=== PATIENT | female | born 1980 | race Caucasian/White ===

== ENCOUNTER 2025-06-20 14:04 | Outpatient (AMB) | payer BC, SELFPAY ==
[2025-06-20 14:10] VITALS: BMI 29.5
--- NOTE | 2025-06-20 14:10 | A.PHYSOV ---
Vital Signs 06/20/25 14:10 Height 6 ft 2 in Weight 230 lb BMI 29.5 Intake Visit Reasons: 2M FUV Intake Note: Patient is here for a 2 month follow up office visit. Foundation Assistant Required: No Allergies Sulfa (Sulfonamide Antibiotics) Allergy (Unknown, Verified 06/20/25 14:13) Unknown HPI Comments Details: History of Present Illness The patient reports experiencing chronic pain, which has been persistent and is managed with gabapentin, tizanidine, and Excedrin. The patient has increased the gabapentin dosage to 300 mg as suggested, which has provided some relief, although aches persist. Patient would like to consider gabapentin 3 times a day for his next refill. The patient uses a combination of medications to manage pain, including tizanidine and Excedrin, and reports that this regimen helps to make the pain more manageable. The patient describes right ankle pain without trauma, resulting in significant pain and the need to use a cane for mobility. Most of his pain is over the Achilles tendon on the right. The patient reports that his symptoms are improving. The patient reports that the ankle was swollen and painful, requiring rest and ice application, which has led to some improvement. The patient has a history of using a TENS machine and performing muscle exercises to manage pain, although adherence to these exercises has been inconsistent. Patient did undergo L5-S1 COOPER on 03/24/2025 without relief Pain Description - Onset: Chronic pain has been ongoing, with recent exacerbation due to ankle injury. - Quality: Described as aches and pains, with significant discomfort in the ankle. - Location: Generalized body aches with specific pain in the ankle. - Exacerbating factors: Physical activity and weight-bearing increase pain. - Relieving factors: Use of gabapentin, tizanidine, Excedrin, rest, and ice application provide relief. Procedure: Bilateral intra-articular injection of the hips 11/11/2024 20% reduction of his pain. L5-S1 COOPER 03/24/2025 minimal reduction of his pain. [facility] Social History Alcohol intake: current Alcohol intake frequency: holidays/special occasions only Patient Tobacco Use Status: Never used Tobacco Review of Systems Narrative Review of Systems - Musculoskeletal: Reports chronic pain and ankle discomfort. Denies other joint pain or swelling. - Neurological: Reports persistent aches. Denies numbness or tingling. Physical Exam Exam Exam: Physical Exam Lumbar Spine: Examination of his lumbar spine, there is no visible swelling or deformity. He is tender to lower lumbar facets. He has full range of motion of his lumbar spine. He does have an increase in pain with facet loading. Special Tests: Lhermittes sign was negative Heel Toe walk is normal Left straight leg raise: Negative Right straight leg raise: Negative Special tests Kayden test is negative Ganslen's test is negative SI Joint compression test negative Pat test negative Piriformis stretch is negative Lower Extremities: Full range of motion bilateral lower extremities. No calf pain or edema. Neuro: Sensation: Intact to lower extremities bilaterally Strength L2 (Psoas): 5/5 on the left and 5/5 on the right. L3 (Quads): 5/5 on the left and 5/5 on the right. L4 (Ant tibialis): 5/5 on the left and 5/5 on the right. L5 (EHL) 5/5 on the left and 5/5 on the right. S1 (Gastroc): 5/5 on the left and 5/5 on the right. DTR L4: (Patellar) Left 2 Right 2 S1: (Achilles) Left 1 Right 1 Babinski Downgoing No pathologic clonus. No involuntary movement. Vital Signs: BMI result Body Mass Index 29.5 Assessment & Plan Assessment & Plan (1) Lumbar radiculopathy: Code(s): M54.16 - Radiculopathy, lumbar region Category: Medical (2) Lumbar spondylosis: Code(s): M47.816 - Spondylosis without myelopathy or radiculopathy, lumbar region Category: Medical (3) Right ankle pain: Code(s): M25.571 - Pain in right ankle and joints of right foot Category: Medical Qualifiers: Chronicity: acute Qualified Code(s): M25.571 - Pain in right ankle and joints of right foot Plan Pain Management - Affect: Pain impacts the patient's daily activities and mood, requiring a combination of medications for management. - Analgesia: Gabapentin 300 mg, tizanidine, and Excedrin are used to manage pain, with some relief noted. - Adverse Effects: No specific adverse effects from medications were discussed. - Activities of Daily Living: Pain affects mobility, necessitating the use of a cane and impacting work activities. - Aberrant Drug Related Behaviors: No aberrant behaviors were reported. Plan Patient was informed and verbally consented to the use of an ambient scribe for clinic note documentation during this visit. 1. Ankle Sprain The patient presented with an ankle sprain, characterized by swelling and pain, which has improved with rest and ice application. The plan includes continued use of ice, rest, and anti-inflammatory medications as needed. Physical therapy may be considered if symptoms persist beyond a couple of months. There is no trauma, I do not believe x-ray will be helpful. 2. Chronic Pain The patient is managing chronic pain with gabapentin, tizanidine, and Excedrin, which provides some relief. A trial of cyclobenzaprine has been initiated to assess its effectiveness in managing muscle spasms. Patient will discontinue tizanidine. The patient is encouraged to continue using a TENS machine and performing muscle exercises to aid in pain management. Patient is considering disability. I recommended contact the disability office. We are happy to provide supporting documentation. Recommend follow-up in 2 months as needed. Medications: New cyclobenzaprine Patient will be discontinuing tizanidine. 10 mg PO TID PRN 90 tabs 0RF muscle spasm 30 days M25.571 - Pain in right ankle and joints of right foot Coding Level of Care Code Tele Est Pt Level 4 (33816) Diagnoses Lumbar radiculopathy M54.16 Lumbar spondylosis M47.816 Acute right ankle pain M25.571 Chronicity: acute
--- OUTSIDE RECORDS SUMMARY | 2025-06-20 17:59 | XMS_ITS | Encounter Summary ---
Author Organization [facility] Address [address] [place] [address] Care Team Providers Care [employer] Name Role Phone Irene Zuleta MD Primary Care Provider [phone] Encounter Details Date Type Department Care Team ([facility] st Contact Info) Description 05/05/2025 Results Follow-Up Endocrinology - [place] [address] [place] [address] Alvin Young MD [address] [place] [address] Social History Tobacco Use Types Packs/Day Years Used Date Smoking Tobacco: Former Cigarettes Smokeless Tobacco: Never Alcohol Use Standard Drinks/Week Comments Yes 0 (1 standard drink = 0.6 oz pur e alcohol) ocassionally Housing Instability Answer Date Recorde d Are you worried that in the next 2 months you may not have stable housing? No 12/28/2024 Food Access & Nutrition Answer Date Rec orded Do you have access to a vari ety of food including fruits and vegetables? Yes 12/28/2024 Access to Healthcare Answer Date Record ed Within the last 3 months, ho w many times did you visit the emergency department for your medical care? 1 12/28/2024 Health Literacy Answer Date Recorded How often do you need to hav e someone help you when you read instructions, pamphlets, or other written material from your doctor or pharmacy? Always 12/28/2024 Caregiver: How often do you need to have someone help you when you read instructions, pamphlets, or other written material from your doctor or pharmacy? Not on file 12/28/2024 Financial Risk Answer Date Recorded How hard is it for you to pa y for the very basics like food, housing, medical care, and air conditioning / heating? Somewhat hard 12/28/2024 Transportation Answer Date Recorded Has the lack of transportati on kept you from meetings, work, or from getting things needed for daily living? No Has the lack of transportati on kept you from medical appointments or from getting medications? No 12/28/2024 Social Isolation Answer Date Recorded How often do you feel lonely or isolated from th ose around you? Never 12/28/2024 Food Risk Answer Date Recorded Within the past 12 months we worried whether our food would run out before we got money to buy more. Never true 12/28/2024 Within the past 12 months th e food we bought just didn't last and we didn't have money to get more. Never true 12/28/2024 Dependent Care Answer Date Recorded Do you need help finding or paying for care for your loved ones. For example, child welfare consultant or elderly care for an older adult? No 12/28/2024 Education Answer Date Recorded Do you think completing more education or training, like finishing a GED, going to college, or learning a trade, would be helpful for you? No 12/28/2024 Employment and Income Answer Date Recor ded During the last four weeks, have you been actively looking for work? Yes 12/28/2024 Living Situation Answer Date Recorded What is your living situation? Unrecognized valu e 12/28/2024 Interpersonal Safety Answer Date Record ed Physical Abuse Unrecognized value 02/28/2025 Verbal Abuse Unrecognized value 02/28/2025 Sex and Gender Information Value Date Recorded Sex Assigned at Not on file Legal Sex Male 11:55 PM EST Gender Identity Not on file Sexual Orientation Not on file documented as of this encounter Plan of Treatment Not on file documented as of this encounter Visit Diagnoses Not on filedocumented in this encounter Additional Health Concerns Assessment Noted Time PHQ-9 Depression Total Score: 0 12/29/19 25 2:54 PM EDT documented as of this encounter Care Teams [employer] Relationship Specialty Start Date End Date Irene Zuleta MD [address] [place] [address] PCP - General Internal Medicine 12/30/24 documented as of this encounter
--- OUTSIDE RECORDS SUMMARY | 2025-06-20 17:59 | XMS_ITS | Clinical Summary ---
Author Organization [facility] Address [address] [facility] [address] [place] [phone] Phone Care Team Providers Care Customer Experience Consultant Name Role Phone Irene Zuleta MD Primary Care Provider [phone] Allergies Active Allergy Reactions Criticality Noted Date Comments Bee Pollen Hives Medium 05/21/2023 hornets Sulfa (Sulfonamide Antibiotics) Hives Medium 12/26 Medications aspirin-acetami nophen-caffeine (EXCEDRIN MIGRAINE) 250-250-65 mg per tablet Take by mouth as needed. Active multivitamins capsule as directed Active triamcinolone (NASACORT AQ) 55 mcg/actuation nasal inhaler by Nasal route. Active loratadine (CLARITIN) 10 mg tablet Take 10 mg by mouth daily. Active glucosamine/cho ndr sharif A sod (OSTEO BI-FLEX ORAL) Take 1 tablet by mouth daily. Active b complex vitamins capsule Take 1 capsule by mouth daily. Active FLUoxetine (PROZAC) 40 MG capsule Take 40 mg by mouth every morning. 05/06/2025 Active busPIRone (BUSPAR) 5 MG tablet TAKE 1 TABLET BY MOUTH 2 TIMES A DAY (MORNING AND EVENING) 05/10/2025 Active gabapentin (NEURONTIN) 100 MG capsule TAKE 2 CAPSULES BY MOUTH 3 TIMES A DAY FOR 90 DAYS 05/01/2025 Active omeprazole (PRILOSEC) 20 MG capsule TAKE 1 CAPSULE BY MOUTH 1 TIME EACH DAY. DO NOT CRUSH OR CHEW. 04/04/2025 Active sildenafiL (VIAGRA) 50 mg tablet TAKE 1 TABLET BY MOUTH EVERY OTHER DAY NEEDED 03/21/2025 Active tiZANidine (ZANAFLEX) 4 MG tablet TAKE 1 BY MOUTH 3 TIMES A DAY 04/25/2025 Active psyllium (METAMUCIL) 0.52 gram capsule Take 520 mg by mouth. Active cetirizine (ZYRTEC) 10 MG tablet Take 10 mg by mouth daily. 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 He has significant back pain and arthritides. The patient has been having right groin discomfort for the past 6 months and he has had a CT scan which I reviewed that shows no evidence of left or right inguinal hernia but a small fat-containing umbilical hernia which is not palpable on exam and the patient has no symptoms from this. Patient is using a cane secondary to his lumbar disc disease. I believe that his pain in the right groin is associated with the arthritis that he reports he is suffering from in his right hip. There is no indication for any surgical intervention. Please follow-up as needed Encounters Date Type Department Care Team Description 05/16/2025 1:00 PM EDT Office Visit [facility] General Surgical [facility] [address] [place] [address] Shazia Castaneda MD Umbilical hernia without obstruction and without gangrene (Primary Dx) from Last 3 Months Family History Medical History Relation Comments Cancer Brother 1 Diabetes type II Father Relation Status Comments Brother 1 Brother 2 Alive Father Alive Mother Alive Sister Alive Social History Tobacco Use Types Packs/Day Years Used Date Smoking Tobacco: Former Cigarettes Q uit: 1997 Passive Smoke Exposure: Never Smokeless Tobacco: Never Alcohol Use Standard Drinks/Week Comments Yes 5 (1 standard drink = 0.6 oz pur e alcohol) social Education Answer Date Recorded Are you interested in more education? Not on sae e 11/21/2022 Are you concerned about learning? Not on file 11/21/2022 No 11/21/2022 No 11/21/2022 Digital Access Answer Date Recorded No 12/19/2022 No 12/19/2022 Reliable internet access at home? Not on file 12/19/2022 Device with a working camera? Not on file Intimate Partner Violence Answer Date R ecorded Are you denied basic needs s uch as food, clothing, or medical care? No 11/20/2024 In the past 12 months have y ou been in a relationship with a person who hurts, threatens, or tries to control you? No 11/20/2024 Are you denied basic needs s uch as food, clothing, or medical care? No 11/20/2024 In the past 12 months have y ou been in a relationship with a person who hurts, threatens, or tries to control you? 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 Not on file Not on f ile Last Filed Vital Signs Vital Sign Reading Time Taken Comments Blood Pressure 110/70 05/16/2025 1:07 PM EDT Pulse 68 05/16/2025 1:07 PM EDT Temperature 37.2 C (98.9 F) 05/16/2025 1:07 PM EDT Respiratory Rate 18 11/20/2024 5:06 PM EDT Oxygen Saturation 98% 05/16/2025 1:07 PM EDT Inhaled Oxygen Concentration - - Weight 106.6 kg (235 lb) 05/16/2025 1:07 PM EDT Height 180.3 cm (5' 10.98 ) 05/16/2025 1:07 PM E DT Body Mass Index 32.79 05/16/2025 1:07 PM EDT Plan of Treatment Health Maintenance Due Date Last Done Comments DEPRESSION SCREENING 1992 HEPATITIS C SCREENING 1998 HIV ONE-TIME SCREENING (18-6 5 YEARS) 1998 INFLUENZA VACCINE (#1) 2025 COVID-19 VACCINE (2024-2 6 season) 2025 SMOKING Hx and SMOKELESS TOBACCO SCREENING 05/16/2026 05/16/2025 SCREENING FOR DIABETES 05/21/2026 05/21/2023 LIPID PANEL 12/30/2029 12/30/2024, 01/13/2023 Adult Td,Tdap Booster 01/09/2032 01/08/2022 HEPATITIS A VACCINES Aged Out No long er eligible based on patient's age to complete this topic HIB VACCINES Aged Out No longer eligi ble based on patient's age to complete this topic MENINGOCOCCAL VACCINES (ACWY) Aged Out No longer eligible based on patient's age to complete this topic MENINGOCOCCAL VACCINES (B) Aged Out N o longer eligible based on patient's age to complete this topic PNEUMOCOCCAL VACCINES (0-49 years) Aged Out No longer eligible b ased on patient's age to complete this topic Medical Devices Not on file Insurance Care Teams Customer Experience Consultant Relationship Specialty Start Date End Date Irene Zuleta MD [address] [place] [phone] PCP - General Internal Medicine 04/18/25 Additional Source Comments The information contained in this document represents components of the legal health record. It is not the complete legal health record.[facility]
--- OUTSIDE RECORDS SUMMARY | 2025-06-20 17:59 | XMS_ITS | Clinical Summary ---
Author Organization [facility] [address] [place] [address] Address [address] [facility] [place] [address] Phone Care Team Providers Care Link Assembler Name Role Phone Irene Zuleta MD Primary Care Provider [phone] Allergies Active Allergy Reactions Criticality Noted Date Comments Sulfa (Sulfonamide Antibiotics) Hives Medium 12/26 Medications loratadine (CLARITIN) 10 mg tablet Take 10 mg by mouth daily. Active multivitamin (MULTIPLE VITAMINS ORAL) Take by mouth 1 (one) time each day. Active ASPIRIN-ACETAMI NOPHEN ORAL Take by mouth. Active tiZANidine (ZANAFLEX) 4 mg tablet Take 1 tablet (4 mg total) by mouth 3 (three) times a day. 5 Active omeprazole (PriLOSEC) [address] capsule Take 1 capsule (20 mg total) by mouth 1 (one) time each day. Do not crush or chew. 90 each 1 5 Active sildenafiL (VIAGRA) 50 mg tablet Take 1 tablet (50 mg total) by mouth if needed. 5 Active B complex tablet Take 1 tablet by mouth 1 (one) time each day. Active psyllium (METAMUCIL) 0.52 gram capsule Take 1 capsule (520 mg total) by mouth 1 (one) time each day. Active gabapentin (NEURONTIN) 100 mg capsule Take 2 capsules (200 mg total) by mouth 3 (three) times a day. Active busPIRone (BUSPAR) 5 mg tablet TAKE 1 TABLET BY MOUTH 2 TIMES A DAY (MORNING AND EVENING) Active FLUoxetine (PROzac) 40 mg capsule Take 1 capsule (40 mg total) by mouth 1 (one) time each day in the morning. 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 12/30/2024 Temporomandibular joint disorder 12/30/2024 COVID-19 virus infection 08/22/2020 Overview (07/11/2024): 07/15 Right hip pain 01/15/2015 Knee pain 01/15/2015 Migraine 01/15/2015 Lumbar radiculopathy 01/15/2015 Encounters Date Type Department Care Team Description 05/30/2025 11:00 AM EST Office Visit Adult Medicine [address] [phone] Karan Grewal PA Left thigh pain (Primary Dx) 05/18/2025 Results Follow-Up Adult Medicine [place] - [address] [phone] Irene Zuleta MD 05/05/2025 Results Follow-Up Endocrinology - [address] [phone] Alvin Young MD 04/19/2025 2:00 PM EDT - 04/19/2025 11:59 PM EDT Hospital Encounter CT Scan - [address] [phone] Right inguinal pain; Umbilical hernia without obstruction and without gangrene Discharge Disposition: Home or Self Care 04/13/2025 1:00 PM EDT Office Visit Adult Medicine [address] [phone] Irene Zuleta MD Right inguinal pain (Primary Dx); Non-recurrent unilateral inguinal hernia without obstruction or gangrene; Umbilical hernia without obstruction and without gangrene from Last 3 Months Immunizations Immunization Administration Dates Next Due H1N1 Inj 08/04/2009 Hepatitis A Adult (Havrix; V aqta) 19yo and older 10/30/2003 IPV Inactivated polio (Ipol) 6wks and older 04/21/2003 Influenza Quadrivalent, 0.5m l, preservative free (Fluarix; FluLaval; Fluzone) ages 6mo and older (Afluria) 3yo and older 05/11/2022,06/02/2020,05/30/2018 Influenza Quadrivalent, with preservative (Fluzone; Afluria) 6mo and older 06/28/2017 Influenza Split 05/28/2008, 7,07/03/2006,06/28 Influenza Whole 05/06/2003 Influenza trivalent, 0.5mL, preservative free (Fluarix; FluLaval; Fluzone) ages 6mo and older (Afluria) 3 years and older 05/10/2016,04/29/2015,04/30/2014,05/16,05/09/2012 Influenza, Unspecified 06/02/2021 Influenza, live, intranasal, trivalent (FluMist) 2yo to less than 50yo 06/01/2010,04/29/2009,08/16/2004 MMR, measles mumps and rubel la Live (Priorix; M-M-R II) 12mo and older 04/28/2003 Meningococcal Polysaccharide 04/21/2003 Moderna (age 6mo & older) Bi valent, COVID-19, 0.5 mL or 0.25 mL dosage 08/29/2020 Moderna SARS-CoV-2 COVID-19, mRNA, LNP-S, preservative free 06/30/2021,09/30/2020,09/01/2020 PPD Test 10/30/2003,04/21/2003 Td Tetanus diptheria (Tdvax) 7yo and older 10/30/2003,04/21/2003 Tdap Tetanus diptheria acell ular pertussis (Boostrix; Adacel) 7yo and older 02/13/2022,01/08/2022,05/09/2012 Typhoid VICPS (Typhim Vi) 2y o and older 12/14/2005,10/30/2003 Varicella live (Varivax) 12m o and older 04/28/2003 Surgical History Surgery Date Site/Laterality Comments VASECTOMY PROCEDURE: HISTORICAL VASECTOMY COLONOSCOPY 04/18/16 PROCEDURE: HISTORICAL COLONOSCOPY; COMMENT: tics; repeat in 5 yrs Medical History Medical History Date Comments Right hip pain 01/15/2015 DX:Right hip chey n Lumbar radiculopathy 01/15/2015 DX:Lumbar r adiculopathy Cluster headache 01/15/2015 DX:Cluster head ache Migraine 01/15/2015 DX:Migraine Family history of colon cancer D X:Family history of colon cancer COVID-19 virus infection 08/22/2020 DX:COVI D-19 virus infection; COMMENT: 07/15 Anxiety Depression Gastroesophageal reflux dise ase without esophagitis 12/30/2024 Family History Medical History Relation Name Comments Cancer Brother Favio segovia Small bowel. Half brother Diabetes Father Robert moody Type 2 Other: healthy Father Robert moody Alcohol abuse Maternal Grandfather Kemar Jeffery Alcoho lic Colon cancer Maternal Grandfather Kemar Jeffery 60s Lung cancer Maternal Grandfather Kemar Jeffery smoker, etoh abuse Colon cancer Maternal Grandmother 70's Colon polyps Mother Other: healthy Mother Stroke Uncle brain tumor Blindness Neg Hx Cataracts Neg Hx Glaucoma Neg Hx Macular degeneration Neg Hx Strabismus Neg Hx Relation Name Status Comments Brother Favio segovia Father Robert moody Maternal Grandfather Kemar Jeffery Maternal Grandmother Mother Uncle Social History Tobacco Use Types Packs/Day Years Used Date Smoking Tobacco: Former Cigarettes Smokeless Tobacco: Never Tobacco Cessation:Counseling Given: Not Answered Alcohol Use Standard Drinks/Week Comments Yes 0 [...] for your loved ones. For example, child care provider or elderly care for an older adult? [...] on file Sexual Orientation Not on file Obstetrics History Last Filed Vital Signs Vital Sign Reading Time Taken Comments Blood Pressure 128/80 05/30/2025 10:53 AM EST Pulse 78 05/30/2025 10:53 AM EST Temperature 36.5 C (97.7 F) 05/30/2025 10:53 AM EST Respiratory Rate 14 05/30/2025 10:53 AM EST Oxygen Saturation 98% 02/28/2025 10:42 AM EDT Inhaled Oxygen Concentration - - Weight 109 kg (240 lb) 05/30/2025 10:53 AM EST Height 188 cm (6' 2 ) 05/30/2025 10:53 AM EST Body Mass Index 30.81 05/30/2025 10:53 AM EST Plan of Treatment Health Maintenance Due Date Last Done Comments Hepatitis B Vaccines (1 of 3 - 19+ 3-dose series) 10/25/1999 IPV Vaccines (2 of 3 - Adult catch-up series) 05/19/2003 04/21/2003 HPV Vaccines (1 - 3-dose SCDM series) 10/25/2007 HIV Screening 06/29/2022 Hepatitis C Screening 06/29/2022 COVID-19 Vaccine ( season) 2025 06/30/2021, 09/30/2020, 09/01/2020, Additional history exists Influenza Vaccine (#1) 2025 , 06/02/2021, 06/02/2020, Additional history exists Social Influencers of Health Screening 12/28/2025 12/28/2024 Cholesterol Screening (Lipid Panel) 12/30/2029 12/30/2024, 01/13/2023 Colorectal Cancer Screening: Colonoscopy 02/28/2030 02/28/2025, 04/18/2016, 04/18/2016 DTaP,Tdap,and Td Vaccines (6 - Td or Tdap) 02/14/2032 02/13/2022, 01/08/2022, 05/09/2012, Additional history exists RSV Immunization Adult Patients (1 - 1-dose 75+ series) 10/25/2055 Meningococcal ACWY Vaccine Aged Out 04/21/2003 N o longer eligible based on patient's age to complete this topic MMR Vaccines Aged Out 04/28/2003 No longer eligi ble based on patient's age to complete this topic Varicella Vaccines Aged Out 04/28/2003 No longer eligible based on patient's age to complete this topic Hepatitis A Vaccines Aged Out 10/30/2003 No long er eligible based on patient's age to complete this topic Depression Screening Completed 12/28/2024 HIB Vaccines Aged Out No longer eligi ble based on patient's age to complete this topic Meningococcal B Vaccine Aged Out No l onger eligible based on patient's age to complete this topic Pneumococcal Vaccine: Pediatrics (0 to 5 Years) and At-Risk Patients (6 to 49 Years) Aged Out No longer eligible based on patient's age to complete this topic RSV Immunization Patients Under 20 months Aged Out No longer eligible based on patient's age to complete this topic Procedures Procedure Name Priority Date/Time Associated Diagnosis Comments CT ABDOMEN PELVIS W CONTRAST Routine 04/19/2025 2:17 PM EDT Right inguinal pain Umbilical hernia without obstruction and without gangrene CBC WITH AUTO DIFFERENTIAL Routine 04/13/2025 1:56 PM EDT Non-recurrent unilateral inguinal hernia without obstruction or gangrene BASIC METABOLIC PANEL Routine 04/13/2025 1:56 PM EDT Non-recurrent unilateral inguinal hernia without obstruction or gangrene CBC AND DIFFERENTIAL Routine 04/13/2025 1:56 PM EDT Non-recurrent unilateral inguinal hernia without obstruction or gangrene COLONOSCOPY Routine 02/28/2025 10:21 AM EDT Gastroesophageal reflux disease without esophagitis BRBPR (bright red blood per rectum) Frequent bowel movements LIPID PANEL WITH REFLEX TO DIRECT LDL Routine 12/30/2024 4:26 PM EDT Screening for cardiovascular, respiratory, and genitourinary diseases from Last 3 Months or Most Recently Relevant to Health Maintenance Results * CT Abdomen Pelvis w Contrast (04/19/2025 2:17 PM EDT) Anatomical Region Laterality Modality Body Computed Tomogra phy 04/19/2025 4:48 PM EDT Narrative 04/19/2025 4:[address] of the abdomen and pelvis with intravenous contrast. History abdominal pain. Rule out right inguinal hernia. Examination was performed on multidetector scanner with administration of 100 cc of Isovue 370. Comparison with prior CT scan of the abdomen and pelvis from 01/06/2025. Liver, spleen, pancreas, adrenal glands, kidneys and gallbladder are unremarkable. There is no biliary ducts dilatation. There is no evidence of bowel obstruction. Appendix is normal in appearance. There are a few diverticuli in the sigmoid colon without evidence of diverticulitis. Pelvic organs are unremarkable. There is no evidence of ascites, abscesses, or focal fluid collections or lymphadenopathy in the abdomen and pelvis. There is a small fat-containing umbilical hernia. There is no evidence of inguinal hernias. Lung bases are clear. There is no suspicious bone abnormalities. CONCLUSIONS: No acute abdominopelvic pathology. Small fat-containing umbilical hernia. No evidence of inguinal hernias. -------- FINAL REPORT -------- Dictated By: Lore Nova Dictated Date: 04/19/2025 16:48 ET Assigned Physician: Lore Nova Reviewed and Electronically Signed By: Lore Nova Signed Date: 04/19/2025 16:52 ET Workstation ID: [id number] Transcribed By: Self Edit Transcribed Date: 04/19/2025 16:48 ET Procedure Note Lore Nova MD - 04/19/2025 CT of the abdomen and pelvis with intravenous contrast. History abdominal pain. Rule out right inguinal hernia. Examination was performed on multidetector scanner with administration of100 cc of Isovue 370. Comparison with prior CT scan of the abdomen andpelvis from 01/06/2025. Liver, spleen, pancreas, adrenal glands, kidneys and gallbladder areunremarkable. There is no biliary ducts dilatation. There is no evidence of bowel obstruction. Appendix is normal inappearance. There are a few diverticuli in the sigmoid colon withoutevidence of diverticulitis. Pelvic organs are unremarkable. There is noevidence of ascites, abscesses, or focal fluid collections orlymphadenopathy in the abdomen and pelvis. There is a small fat-containing umbilical hernia. There is no evidence ofinguinal hernias. Lung bases are clear. There is no suspicious bone abnormalities. CONCLUSIONS: No acute abdominopelvic pathology. Small fat-containingumbilical hernia. No evidence of inguinal hernias. -------- FINAL REPORT -------- Dictated By: Lore Nova Dictated Date: 04/19/2025 16:48 ET Assigned Physician: Lore Nova Reviewed and Electronically Signed By: Lore Nova Signed Date: 04/19/2025 16:52 ET Workstation ID: [id number] Transcribed By: Self Edit Transcribed Date: 04/19/2025 16:48 ET Irene Zuleta MD IM CT PROCEDURES Final Result * (ABNORMAL) CBC auto differential (04/13/2025 1:56 PM EDT) WBC 4.3(L) 4.8 - 10.8 K/mcL LAB HEMETOLOGY METHOD 04/13/2025 5:32 PM EDT [facility] RBC 4.60 4.50 - 5.50 M/mcL LAB HEMETOLOGY METHOD 04/13/2025 5:32 PM EDT [facility] Hemoglobin 14.4 13.5 - 17.5 g/dL LAB HEMETOLOGY METHOD 04/13/2025 5:32 PM EDT [facility] Hematocrit 42.7 42.0 - 54.0 % LAB HEMETOLOGY METHOD 04/13/2025 5:32 PM EDT [facility] MCV 92.8 79.0 - 98.0 FL LAB HEMETOLOGY METHOD 04/13/2025 5:32 PM EDT [facility] MCH 31.3 27.0 - 32.0 pcg LAB HEMETOLOGY METHOD 04/13/2025 5:32 PM EDT [facility] MCHC 33.7 32.0 - 37.0 g/dL LAB HEMETOLOGY METHOD 04/13/2025 5:32 PM EDT [facility] RDW 12.3 11.0 - 15.0 % LAB HEMETOLOGY METHOD 04/13/2025 5:32 PM EDT [facility] Platelets 208 130 - 400 K/mcL LAB HEMETOLOGY METHOD 04/13/2025 5:32 PM EDT [facility] MPV 9.4 7.0 - 11.0 FL LAB HEMETOLOGY METHOD 04/13/2025 5:32 PM EDT [facility] NRBC 0.0 <1.0 % LAB [facility]EMETOLOGY METHOD [facility] NRBC Absolute 0.00 <0.10 K/mcL LAB HEMETOLOGY METHOD 04/13/2025 5:32 PM EDT [facility] Neutrophils Relative 61.7 % LAB HEMETOLOGY METHOD 04/13/2025 5:32 PM EDT [facility] Lymphocytes Relative 20.3 % LAB HEMETOLOGY METHOD 04/13/2025 5:[facility] Monocytes Relative 14.3 % LAB HEMETOLOGY METHOD 04/13/2025 5:32 PM EDT [facility] Eosinophils Relative 2.5 % LAB HEMETOLOGY METHOD 04/13/2025 5:32 PM EDT [facility] Basophils Relative 0.7 % LAB HEMETOLOGY METHOD 04/13/2025 5:32 PM EDT [facility] Immature Granulocytes Relative 0.5 % LAB HEMETOLOGY METHOD 04/13/2025 5:[facility] Neutrophils Absolute 2.67 1.50 - 7.00 K/mcL LAB HEMETOLOGY METHOD 04/13/2025 5:32 PM EDT [facility] Lymphocytes Absolute 0.88(L) 1.00 - 5.00 K/mcL LAB HEMETOLOGY METHOD 04/13/2025 5:32 PM EDT [facility] Monocytes Absolute 0.62 0.20 - 1.00 K/mcL LAB HEMETOLOGY METHOD 04/13/2025 5:32 PM EDT [facility] Eosinophils Absolute 0.11 0.00 - 0.50 K/mcL LAB HEMETOLOGY METHOD 04/13/2025 5:32 PM EDT [facility] Basophils Absolute 0.03 0.00 - 0.20 K/mcL LAB HEMETOLOGY METHOD 04/13/2025 5:32 PM EDT [facility] Immature Granulocytes Absolute 0.02 0.00 - 0.03 K/mcL LAB HEMETOLOGY METHOD 04/13/2025 5:32 PM EDT [facility] Blood Venous blood specimen / Unknown Venipuncture / Unknown 04/13/2025 1:56 PM EDT 04/13/2025 1:56 PM EDT us Irene Zuleta MD LAB BLOOD ORDERABLES Final Resul t [facility] [address] [place] [address], * (ABNORMAL) Basic metabolic panel (04/13/2025 1:56 PM EDT) Sodium 139 133 - 145 mmol/L LAB CHEMISTRY METHOD 04/13/2025 5:31 PM EDT [facility] Potassium 3.9 3.5 - 5.5 mmol/L LAB CHEMISTRY METHOD 04/13/2025 5:31 PM EDT [facility] Chloride 103 96 - 110 mmol/L LAB CHEMISTRY METHOD 04/13/2025 5:31 PM EDT [facility] CO2 33(H) 21 - 32 mmol/L LAB CHEMISTRY METHOD 04/13/2025 5:31 PM EDT [facility] Anion Gap 3 3 - 11 LAB CHEMISTRY METHOD 04/13/2025 5:31 PM EDT [facility] Glucose 83 70 - 100 mg/dL LAB CHEMISTRY METHOD 04/13/2025 5:31 PM EDT [facility] BUN 16 5 - 25 mg/dL LAB CHEMISTRY METHOD 04/13/2025 5:31 PM EDT [facility] Creatinine 1.11 0.70 - 1.30 mg/dL LAB CHEMISTRY METHOD 04/13/2025 5:31 PM EDT [facility] eGFR 84 >=60 mL/min/1. 73m2 LAB CHEMISTRY METHOD 04/13/2025 5:31 PM EDT [facility] Comment:Calculation based on the Chronic Kidney Disease Epidemiology Collaboration (CKD-EPI) equation refit without adjustment for race. BUN/Creatinine Ratio 14.4 LAB CHEMISTRY METHOD 04/13/2025 5:31 PM EDT [facility] Calcium 9.5 8.5 - 10.5 mg/dL LAB CHEMISTRY METHOD 04/13/2025 5:31 PM EDT [facility] Blood Venous blood specimen / Unknown Venipuncture / Unknown 04/13/2025 1:56 PM EDT 04/13/2025 1:56 PM EDT us Irene Zuleta MD LAB BLOOD ORDERABLES Final Resul t [facility] [address] [place] [address], * COLONOSCOPY Anesthesia - [facility]; [facility] ENDOSCOPY (02/28/2025 10:21 AM EDT) Anatomical Region Laterality Modality Endoscopy 02/28/2025 9:52 AM EDT Impressions 02/28/2025 10:25 AM EDT - The examined portion of the ileum was normal. - Normal mucosa in the entire examined colon. Biopsied. - Diverticulosis in the sigmoid colon. - The distal rectum and anal verge are normal on retroflexion view. Recommendation: - Discharge patient to home. - Await pathology results. - Repeat colonoscopy in 10 years for screening purposes. Narrative 02/28/2025 10:25 AM EDT [facility] GI Patient Name: Jaiden Cronin Procedure Date: 02/28/2025 9:52 AM Date of : 1980 Age: 44 Gender: Male Note Status: Finalized Attending MD: Petra Barrett MD, Procedure Date No Time: 02/28/2025 Procedure: Colonoscopy Indications: Chronic diarrhea Providers: Petra Barrett MD Referring MD: Petra Barrett MD Medicines: Monitored Anesthesia Care Complications: No immediate complications. Estimated blood loss: Minimal. Estimated Blood Loss: Estimated blood loss was minimal. Procedure: Pre-Anesthesia Assessment: - Prior to the procedure, a History and Physical was performed, and patient medications and allergies were reviewed. The patient is competent. The risks and benefits of the procedure and the sedation options and risks were discussed with the patient. All questions were answered and informed consent was obtained. Patient identification and proposed procedure were verified by the physician, the nurse, the geriatric nurse and the simulation technician in the pre-procedure area in the endoscopy suite. Mental Status Examination: alert and oriented. Airway Examination: normal oropharyngeal airway and neck mobility. Respiratory Examination: clear to auscultation. CV Examination: normal. Prophylactic Antibiotics: The patient does not require prophylactic antibiotics. Prior Anticoagulants: The patient has taken no anticoagulant or antiplatelet agents. ASA Grade Assessment: III - A patient with severe systemic disease. After reviewing the risks and benefits, the patient was deemed in satisfactory condition to undergo the procedure. The anesthesia plan was to use monitored anesthesia care (MAC). Immediately prior to administration of medications, the patient was re-assessed for adequacy to receive sedatives. The heart rate, respiratory rate, oxygen saturations, blood pressure, adequacy of pulmonary ventilation, and response to care were monitored throughout the procedure. The physical status of the patient was re-assessed after the procedure. After I obtained informed consent, the scope was passed under direct vision. Throughout the procedure, the patient's blood pressure, pulse, and oxygen saturations were monitored continuously.The Olympus Colonoscope was introduced through the anus and advanced to the terminal ileum. The colonoscopy was performed without difficulty. The patient tolerated the procedure well. The quality of the bowel preparation was good. Findings: The perianal and digital rectal examinations were normal. The terminal ileum appeared normal. Normal mucosa was found in the entire colon. Biopsies for histology were taken with a cold forceps from the ascending colon for evaluation of microscopic colitis. Estimated blood loss was minimal. A few small-mouthed diverticula were found in the sigmoid colon. The retroflexed view of the distal rectum and anal verge was normal and showed no anal or rectal abnormalities. Procedure Code(s): --- Professional --- 85676, Colonoscopy, flexible; with biopsy, single or multiple Diagnosis Code(s): --- Professional --- K52.9, Noninfective gastroenteritis and colitis, unspecified CPT copyright 2020 [employer]. All rights reserved. The codes documented in this report are preliminary and upon writing tutor review may be revised to meet current compliance requirements. Petra Barrett MD 02/28/2025 10:25:10 AM This report has been signed electronically.Petra Barrett MD Number of Addenda: 0 Note Initiated On: 02/28/2025 9:52 AM Scope Withdrawal Time: 0 hours 10 minutes 27 seconds Scope In: 9:58:32 AM Scope Out: 10:10:10 AM Endoscopy Department at [facility] - [address] [place] [phone] Procedure Note Petra Barrett MD - 02/28/2025 [facility] GI Patient Name: Jaiden Cronin Procedure Date: 02/28/2025 9:52 AM Date of : 1980 Age: 44 Gender: Male Note Status: Finalized Attending MD: Petra Barrett MD, Procedure Date No Time: 02/28/2025 Procedure: Colonoscopy Indications: Chronic diarrhea Providers: Petra Barrett MD Referring MD: Petra Barrett MD Medicines: Monitored Anesthesia Care Complications: No immediate complications. Estimated blood loss: Minimal. Estimated Blood Loss: Estimated blood loss was minimal. Procedure: Pre-Anesthesia Assessment: - Prior to the procedure, a History and Physicalwas performed, and patient medications and allergieswere reviewed. The patient is competent. The risks and benefits of the procedure and the sedation optionsand risks were discussed with the patient. Allquestions were answered and informed consent was obtained. Patient identification and proposed procedure were verified by the physician, the nurse, theanesthetist and the simulation technician in the pre-procedure area in the endoscopy suite. Mental Status Examination: alertand oriented. Airway Examination: normal oropharyngeal airway and neck mobility. Respiratory Examination: clear to auscultation. CV Examination: normal. Prophylactic Antibiotics: The patient does notrequire prophylactic antibiotics. Prior Anticoagulants: The patient has taken no anticoagulant or antiplatelet agents. ASA Grade Assessment: III - A patient with severe systemic disease. After reviewing the risksand benefits, the patient was deemed in satisfactory condition to undergo the procedure. The anesthesia plan was to use monitored anesthesia care (MAC). Immediately prior to administration of medications, the patient was re-assessed for adequacy to receive sedatives. The heart rate, respiratory rate, oxygen saturations, blood pressure, adequacy of pulmonary ventilation, and response to care were monitored throughout the procedure. The physical status ofthe patient was re-assessed after the procedure. After I obtained informed consent, the scope was passed under direct vision. Throughout theprocedure, the patient's blood pressure, pulse, and oxygen saturations were monitored continuously.The Olympus Colonoscope was introduced through the anus and advanced to the terminal ileum. The colonoscopy was performed without difficulty. The patient tolerated the procedure well. The quality of the bowel preparation was good. Findings: The perianal and digital rectal examinations were normal. The terminal ileum appeared normal. Normal mucosa was found in the entire colon.Biopsies for histology were taken with a cold forceps fromthe ascending colon for evaluation of microscopiccolitis. Estimated blood loss was minimal. A few small-mouthed diverticula were found in the sigmoid colon. The retroflexed view of the distal rectum and anal verge was normal and showed no anal or rectal abnormalities. Procedure Code(s): --- Professional --- 99908, Colonoscopy, flexible; with biopsy, singleor multiple Diagnosis Code(s): --- Professional --- K52.9, Noninfective gastroenteritis and colitis, unspecified CPT copyright 2020 [employer]. All rights reserved. The codes documented in this report are preliminary and upon writing tutor reviewmay be revised to meet current compliance requirements. Petra Barrett MD 02/28/2025 10:25:10 AM This report has been signed electronically.Petra Barrett MD Number of Addenda: 0 Note Initiated On: 02/28/2025 9:52 AM Scope Withdrawal Time: 0 hours 10 minutes 27 seconds Scope In: 9:58:32 AM Scope Out: 10:10:10 AM Endoscopy Department at [facility] - [address] [place] [id number] IMPRESSION: - The examined portion of the ileum was normal. - Normal mucosa in the entire examined colon.Biopsied. - Diverticulosis in the sigmoid colon. - The distal rectum and anal verge are normal on retroflexion view. Recommendation: - Discharge patient to home. - Await pathology results. - Repeat colonoscopy in 10 years for screening purposes. us Petra Barrett MD GI~PROCEDURE ORDERABLES Fin al Result * (ABNORMAL) Lipid panel with reflex to direct LDL (12/30/2024 4:26 PM EDT) Cholesterol 192 0 - 200 mg/dL LAB CHEMISTRY METHOD [facility]2024 8[facility] Triglycerides 157(H) 0 - 150 mg/dL LAB CHEMISTRY METHOD 12/30/2024 8:07 PM EDT [facility] HDL 47 >=40 mg/dL LAB CHEMISTRY METHOD 12/30/2024 8:07 [facility] LDL Calculated 114(H) 0 - 100 mg/dL LAB CHEMISTRY METHOD 12/30/2024 8:07 PM [facility] VLDL Cholesterol Herbert 31.4 mg/dL LAB CHEMISTRY METHOD 12/30/2024 8:07 [facility] Non HDL Chol. (LDL+VLDL) 145(H) <145 mg/dL LAB CHEMISTRY METHOD 12/30/2024 8:07 PM [facility] Chol/HDL Ratio 4.1 0.0 - 4.4 LAB CHEMISTRY METHOD 12/30/2024 8:07 PM EDT [facility] Blood Venous blood specimen / Unknown Venipuncture / Unknown 12/30/2024 4:26 PM EDT 12/30/2024 4:26 PM EDT us Irene Zuleta MD LAB BLOOD ORDERABLES Final Resul t [facility] ([facility] [address] [place] [address], from Last 3 Months or Most Recently Relevant to Health Maintenance Insurance [facility] Care Teams Link Assembler Relationship Specialty Start Date End Date Irene Zuleta MD [address] [place] [id number] PCP - General Internal Medicine 12/30/24
== END 2025-06-20 14:49 | disposition home or self-care (01) ==
LOC: HO.HPHYS 14:05
PROVIDERS: PCP Internal Medicine; Visit Provider Physician Assistant
DX: M54.16 Radiculopathy, lumbar region (principal); M47.816 Spondylosis without myelopathy or radiculopathy, lumbar region; M25.571 Pain in right ankle and joints of right foot
CPT/HCPCS: 99214